=== PATIENT | male | born 1990 | race Caucasian/White ===

== ENCOUNTER 2017-10-27 05:10 | Emergency (ER) | payer SELFPAY ==
[~2017-10-27] VITALS: Ht 182.9 cm; Wt 86.2 kg
[~2017-10-27 05:10] MED LIST: ACHD5005 PO; AGM875T PO; FAMO-106 PO; HYDR-1231 PO; METH4TAB PO; METO-354 PO; ONDA-43 PO; ONDA8TAB13 PO; ONDAN4ODT PO; PANT40TA PO; PANT40TA3 PO; PNT40TEC PO; PRM25T PO; PROM25TA14 PO; SCR1T PO; SUCR1TAB PO; SULF1TAB38 PO
--- OUTSIDE RECORDS SUMMARY | 2017-10-27 05:17 | XMS REPORT | Continuity of Care Document ---
Author Author [facility] Organization [facility] Address Unknown Phone Unavailable Allergies Active Description Code Type Severity Reaction Onset Reported/Identified Relationship to Patient Clinical Status Yes No Known Drug Allergies [id number] Drug Allergy Unknown N/A 10/23/2014 Medications There is no data. 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 06/11/2012 Ot 530.81 ESOPHAGEAL REFLUX 06/11/2012 Ot 536.2 PERSISTENT VOMITING 06/11/2012 Ot 575.11 CHRONIC CHOLECYSTITIS 06/11/2012 Ot 790.6 ABN BLOOD CHEMISTRY NEC 11/22/2012 Ot 881.00 OPEN WOUND OF FOREARM 11/22/2012 Ot E000.8 OTHER EXTERNAL CAUSE STATUS 11/22/2012 Ot E849.0 ACCIDENT IN HOME 11/22/2012 Ot E906.0 DOG BITE 11/22/2012 Ot V06.1 DIPHTHERIA- TETANUS-PERTUSSIS, COMBINED [ 11/23/2012 Ot V58.30 ENCOUNTER FOR CHANGE OR REMOVAL OF NONSU 11/25/2012 Ot V58.30 ENCOUNTER FOR CHANGE OR REMOVAL OF NONSU 04/14/2013 CARLOTA BOOTHE MD Ot 787.01 NAUSEA WITH VOMITING 04/14/2013 CARLOTA BOOTHE MD Ot 789.00 ABDOMINAL PAIN, UNSPECIFIED SITE 09/26/2013 AYSHA JEFFERY, JASON Benavides Ot 305.1 TOBACCO USE DISORDER 09/26/2013 JASON OLMSTEAD MD Ot 530.10 ESOPHAGITIS NOS 09/26/2013 JASON OLMSTEAD MD Ot 530.81 ESOPHAGEAL REFLUX 09/26/2013 JASON OLMSTEAD MD Ot 535.50 UNSP GASTRITIS GASTRODUODENITIS W/O ME 12/22/2013 WALKER PHIPPS BUSINESS ASSISTANT Ot 521.00 UNSPEC DENTAL CARIES 12/22/2013 WALKER PHIPPS BUSINESS ASSISTANT Ot 525.9 DENTAL DISORDER NOS 01/02/2014 ANIBAL SHEPARD DO Ot 276.51 DEHYDRATION 01/02/2014 ANIBAL SHEPARD DO Ot 288.60 LEUKOCYTOSIS, UNSPECIFIED 01/02/2014 ANIBAL SHEPARD DO Ot 305.20 CANNABIS ABUSE-UNSPEC 01/02/2014 ANIBAL SHEPARD DO Ot 530.81 ESOPHAGEAL REFLUX 01/02/2014 ANIBAL SHEPARD DO Ot 536.2 PERSISTENT VOMITING 03/23/2014 ANIBAL SHEPARD DO Ot 536.2 PERSISTENT VOMITING 03/23/2014 ANIBAL SHEPARD DO Ot 787.91 DIARRHEA 10/22/2014 Ot 787.01 NAUSEA WITH VOMITING 10/22/2014 Ot 787.03 VOMITING ALONE 10/26/2014 Ot 305.20 CANNABIS ABUSE-UNSPEC 10/26/2014 Ot 305.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, HYPNOTIC OR ANXIOLYTIC ABUSE, 10/26/2014 Ot 305.70 AMPHETAMINE ABUSE-UNSPEC 10/26/2014 Ot 536.2 PERSISTENT VOMITING 03/31/2016 Ot 786.52 PAINFUL RESPIRATION 04/01/2016 Ot 786.52 PAINFUL RESPIRATION 04/02/2016 WALKER PHIP[employer] BUSINESS ASSISTANT Ot F10.10 ALCOHOL ABUSE, UNCOMPLICATED 04/02/2016 WALKER [employer] BUSINESS ASSISTANT Ot F12.10 CANNABIS ABUSE, UNCOMPLICATED 04/02/2016 WALKER [employer]IP[employer] BUSINESS ASSISTANT Ot G43.A0 CYCLICAL VOMITING, NOT INTRACTABLE 04/02/2016 TYREE STONER MD Ot F10.10 ALCOHOL ABUSE, UNCOMPLICATED 04/02/2016 TYREE STONER MD Ot F12.10 CANNABIS ABUSE, UNCOMPLICATED 04/02/2016 TYREE STONER MD Ot R11.2 NAUSEA WITH VOMITING, UNSPECIFIED Procedures There is no data. Results Test Result Range Complete blood count (CBC) with automated white blood cell (WBC) differential - 03/31/16 13:00 Blood leukocytes automated count (number/volume) 14.0 10*3/uL 4.3-11.0 Blood erythrocytes automated count (number/volume) 5.63 10*6/uL 4.35-5.85 Venous blood hemoglobin measurement (mass/volume) 17.4 g/dL 13.3-17.7 Blood hematocrit (volume fraction) 49 % 40-54 Automated erythrocyte mean corpuscular volume 86 [foz_us] 80-99 Automated erythrocyte mean corpuscular hemoglobin (mass per erythrocyte) 31 pg 25-34 Automated erythrocyte mean corpuscular hemoglobin concentration measurement ( mass/volume) 36 g/dL 32-36 Automated erythrocyte distribution width ratio 12.0 % 10.0-14.5 Automated blood platelet count (count/volume) 264 10*3/uL 130-400 Automated blood platelet mean volume measurement 10.4 [foz_us] 7.4-10.4 Automated blood neutrophils/100 leukocytes 91 % 42-75 Automated blood lymphocytes/100 leukocytes 5 % 12-44 Blood monocytes/100 leukocytes 3 % 0-12 Automated blood eosinophils/100 leukocytes 0 % 0-10 Automated blood basophils/100 leukocytes 0 % 0-10 Blood neutrophils automated count (number/volume) 12.8 10*3 1.8-7.8 Blood lymphocytes automated count (number/volume) 0.8 10*3 1.0-4.0 Blood monocytes automated count (number/volume) 0.5 10*3 0.0-1.0 Automated eosinophil count 0.0 10*3/uL 0.0-0.3 Automated blood basophil count (count/volume) 0.0 10*3/uL 0.0-0.1 Blood manual differential performed detection - 03/31/16 13:00 Blood monocytes/100 leukocytes 2 % NRG Manual blood segmented neutrophils/100 leukocytes 92 % NRG Blood band neutrophils/100 leukocytes 2 % NRG Manual blood lymphocytes/100 leukocytes 2 % NRG Manual eosinophils/100 leukocytes in nose 0 % NRG Manual blood basophils/100 leukocytes 0 % NRG Blood lymphocytes variant/100 leukocytes 2 % NRG Blood erythrocyte morphology finding identification NORMAL NRG Complete blood count (CBC) with automated white blood cell (WBC) differential - 04/01/16 18:05 Blood leukocytes automated count (number/volume) 11.0 10*3/uL 4.3-11.0 Blood erythrocytes automated count (number/volume) 5.29 10*6/uL 4.35-5.85 Venous blood hemoglobin measurement (mass/volume) 16.5 g/dL 13.3-17.7 Blood hematocrit (volume fraction) 46 % 40-54 Automated erythrocyte mean corpuscular volume 87 [foz_us] 80-99 Automated erythrocyte mean corpuscular hemoglobin (mass per erythrocyte) 31 pg 25-34 Automated erythrocyte mean corpuscular hemoglobin concentration measurement ( mass/volume) 36 g/dL 32-36 Automated erythrocyte distribution width ratio 11.9 % 10.0-14.5 Automated blood platelet count (count/volume) 235 10*3/uL 130-400 Automated blood platelet mean volume measurement 10.3 [foz_us] 7.4-10.4 Automated blood neutrophils/100 leukocytes 83 % 42-75 Automated blood lymphocytes/100 leukocytes 10 % 12-44 Blood monocytes/100 leukocytes 6 % 0-12 Automated blood eosinophils/100 leukocytes 0 % 0-10 Automated blood basophils/100 leukocytes 0 % 0-10 Blood neutrophils automated count (number/volume) 9.2 10*3 1.8-7.8 Blood lymphocytes automated count (number/volume) 1.1 10*3 1.0-4.0 Blood monocytes automated count (number/volume) 0.7 10*3 0.0-1.0 Automated eosinophil count 0.0 10*3/uL 0.0-0.3 Automated blood basophil count (count/volume) 0.0 10*3/uL 0.0-0.1 Comprehensive metabolic panel - 04/01/16 18:05 Serum or plasma sodium measurement (moles/volume) 140 mmol/L 135-145 Serum or plasma potassium measurement (moles/volume) 3.7 mmol/L 3.6-5.0 Serum or plasma chloride measurement (moles/volume) 104 mmol/L 98-107 Carbon dioxide 23 mmol/L 21-32 Serum or plasma anion gap determination (moles/volume) 13 mmol/L 5-14 Serum or plasma urea nitrogen measurement (mass/volume) 15 mg/dL 7-18 Serum or plasma creatinine measurement (mass/volume) 0.85 mg/dL 0.60-1.30 Serum or plasma urea nitrogen/creatinine mass ratio 18 NRG Serum or plasma creatinine measurement with calculation of estimated glomerular filtration rate > NRG Serum or plasma glucose measurement (mass/volume) 129 mg/dL 70-105 Serum or plasma calcium measurement (mass/volume) 9.9 mg/dL 8.5-10.1 Serum or plasma total bilirubin measurement (mass/volume) 1.1 mg/dL 0.1-1.0 Serum or plasma alkaline phosphatase measurement (enzymatic activity/volume) 67 U/L 40-136 Serum or plasma aspartate aminotransferase measurement (enzymatic activity/ volume) 24 U/L 5-34 Serum or plasma alanine aminotransferase measurement (enzymatic activity/volume ) 33 U/L 0-55 Serum or plasma protein measurement (mass/volume) 7.7 g/dL 6.4-8.2 Serum or plasma albumin measurement (mass/volume) 4.7 g/dL 3.2-4.5 Magnesium - 04/01/16 18:05 Magnesium 2.0 mg/dL 1.8-2.4 Serum or plasma amylase measurement (enzymatic activity/volume) - 04/01/16 18: 05 Serum or plasma amylase measurement (enzymatic activity/volume) 29 U /L 25-125 Lipase - 04/01/16 18:05 Lipase 10 U/L 8-78 Encounters ACCT No. Visit Date/Time Discharge Status Pt. Type Provider Facility Loc./Unit Complaint [id number] 04/01/2016 15:55:00 04/01/2016 19:50:00 DIS Outpatient TYREE STONER MD [facility] ER VOMITING [id number] 03/31/2016 12:31:00 03/31/2016 15:27:00 DIS Outpatient WALKER PHIPPS APRN [facility] ER VOMITING [id number] 03/22/2014 21:18:00 03/23/2014 15:02:00 DIS Inpatient ANIBAL SHEPARD DO [facility] 4TH INTRACTABLE N/V [id number] 12/31/2013 23:49:00 01/02/2014 13:30:00 DIS Inpatient ANIBAL SHEPARD DO [facility] 4TH INTRACTABLE VOMITING , DEHYDRATION [id number] 12/22/2013 22:33:00 12/22/2013 22:43:00 DIS Emergency WALKER PHIPPS APRN [facility] ER DENTAL PAIN [id number] 09/24/2013 22:55:00 09/26/2013 11:33:00 DIS Outpatient AYSHA JEFFERY, JASON Benavides [facility] SDC INTRACTABLE VOMITING ; LEUKOCYTOSIS [id number] 04/14/2013 11:11:00 04/14/2013 14:18:00 DIS Emergency CARLOTA BOOTHE MD [facility] ER ABD PAIN/VOMITING HEADACHE [id number] 02/01/2015 15:58:00 Document Registration [id number] 10/23/2014 09:11:00 Document Registration [id number] 10/22/2014 20:36:00 Document Registration [id number] 10/22/2014 10:02:00 Document Registration [id number] 11/23/2012 12:46:00 Document Registration [id number] 11/22/2012 19:09:00 Document Registration [id number] 06/10/2012 00:35:00 Document Registration [id number] 06/07/2012 02:11:00 Document Registration [id number] 06/06/2012 11:12:00 Document Registration [id number] 12/23/2010 16:00:00 Document Registration
[2017-10-27] MEDS ORDERED: LACTATED RINGERS 1,000 ML IV STA (05:52)
[2017-10-27] MEDS ORDERED: FAMOTIDINE 20MG/2ML IV (PEPCID) IV STA (05:52)
--- NOTE | 2017-10-27 05:59 | ED GI ---
General Chief Complaint: Abdominal/GI Problems Stated Complaint: VOMITING X 2 DAYS Nursing Triage Note: pt presents to er with complaint of vomiting x2 days. Sepsis Screen: No Definite Risk Source of Information: Patient Exam Limitations: No Limitations (TYREE STONER MD) History of Present Illness Date Seen by Provider: Oct 27, 2017 Time Seen by Provider: 05:47 Initial Comments Here with report of persistent nausea and vomiting for the last 2 days. States he has not been able to keep anything down. Reports abdominal muscle wall pain due to the vomiting. Has history of this previous but was associated with high use of marijuana. States that he occasionally or rarely uses marijuana anymore. Rarely drinks but did drink on Thursday and thinks that may be what initiated the vomiting. Unable to keep fluids down. Concerned about being dehydrated. Timing/Duration: 2-3 Days Severity/Quality: Moderate, Aching Location: Generalized Abdomen Radiation: No Radiation Activities at Onset: None Modifying Factors: Worsens With Eating, Worsens With Movement Associated Symptoms: No Back Pain, No Chest Pain, No Fever/Chills, Fatigue, Nausea/Vomiting, No Shortness of Air, Weakness (TYREE STONER MD) Allergies and Home Medications Allergies Coded Allergies: No Known Drug Allergies (Unverified , 10/23/14) Home Medications Ondansetron 4 Mg Tab.rapdis, 4 MG SL Q4H PRN for NAUSEA/VOMITING-1ST LINE Prescribed by: KATHIE HEDRICK on 10/27/17 0649 Patient Home Medication List Home Medication List Reviewed: Yes (TYREE STONER MD) Review of Systems Constitutional: see HPI, No chills, No fever EENTM: No Symptoms Reported Respiratory: No Symptoms Reported Cardiovascular: Denies Chest Pain, Lightheadedness Gastrointestinal: Abdominal Pain, Denies Constipated, Denies Diarrhea, Nausea, Vomiting Genitourinary: No Symptoms Reported Musculoskeletal: No back pain, muscle pain, No neck pain (TYREE STONER MD ) All Other Systems Reviewed Negative Unless Noted: Yes (TYREE STONER MD) Past Auftttb-Yahqoq-Jofure Hx Patient Social History Alcohol Use: Occasionally Uses Recreational Drug Use: Yes (occasional marijuana) Smoking Status: Former Smoker Recent Foreign Travel: No Contact w/Someone Who Travel: No Recent Infectious Disease Expo: No Recent Hopitalizations: No (TYREE STONER MD) Immunizations Up To Date Tetanus Booster (TDap): More than 5yrs (TYREE STONER MD) Seasonal Allergies Seasonal Allergies: No (TYREE STONER MD) Surgeries History of Surgeries: Yes (EGD) (TYREE STONER MD) Respiratory History of Respiratory Disorde: No (TYREE STONER MD) Cardiovascular History of Cardiac Disorders: No (TYREE STONER MD) Neurological History of Neurological Disord: No (TYREE STONER MD) Reproductive System Hx Reproductive Disorders: No Sexually Transmitted Disease: No HIV/AIDS: No (TYREE STONER MD) Gastrointestinal History of Gastrointestinal Di: Yes (unexplain bouts of vomitting) Gastrointestinal Disorders: Gastroesophageal Reflux (TYREE STONER MD) Musculoskeletal History of Musculoskeletal Dis: No (TYREE STONER MD) Endocrine History of Endocrine Disorders: No (TYREE STONER MD) Cancer History of Cancer: No (TYREE STONER MD) Psychosocial History of Psychiatric Problem: No (TYREE STONER MD) Integumentary History of Skin or Integumenta: No (TYREE STONER MD) Blood Transfusions History of Blood Disorders: No (TYREE STONER MD) Reviewed Nursing Assessment Reviewed/Agree w Nursing PMH: Yes (TYREE STONER MD) Family Medical History Significant Family History: No Pertinent Family Hx Family Medial History: Cancer 03 FATHER (grandfather) 03 MOTHER (grandaunts) Family history: Breast disease 03 MOTHER Family history: Hypertension 03 FATHER No Family History of: Abdominal aortic aneurysm Parma's disease Alcoholism Cancer of colon Cataract Chest pain Congenital heart disease Congestive heart failure Cystic fibrosis Dementia Dysphagia Family history: Alzheimer's disease Family history: Arthritis Family history: Asthma Family history: Cardiovascular disease Family history: Coronary thrombosis Family history: Diabetes mellitus Family history: Gastrointestinal disease Family history: Glaucoma Family history: Osteoporosis Family history: Thyroid disorder Headache Hearing loss Heart disease History of - anemia History of - respiratory disease History of drug abuse Human immunodeficiency virus (HIV) seropositivity Hypercholesterolemia Kidney disease Myocardial infarction Parkinson's disease Prostate cancer Psychotic disorder Seizure disorder Stroke Tuberculosis Visual impairment (TYREE STONER MD) Family Medial History: Cancer 03 FATHER (grandfather) 03 MOTHER (grandaunts) Family history: Breast disease 03 MOTHER Family history: Hypertension 03 FATHER No Family History of: Abdominal aortic aneurysm Parma's disease Alcoholism Cancer of colon Cataract Chest pain Congenital heart disease Congestive heart failure Cystic fibrosis Dementia Dysphagia Family history: Alzheimer's disease Family history: Arthritis Family history: Asthma Family history: Cardiovascular disease Family history: Coronary thrombosis Family history: Diabetes mellitus Family history: Gastrointestinal disease Family history: Glaucoma Family history: Osteoporosis Family history: Thyroid disorder Headache Hearing loss Heart disease History of - anemia History of - respiratory disease History of drug abuse Human immunodeficiency virus (HIV) seropositivity Hypercholesterolemia Kidney disease Myocardial infarction Parkinson's disease Prostate cancer Psychotic disorder Seizure disorder Stroke Tuberculosis Visual impairment (KATHIE DICKERSON MD) Physical Exam Vital Signs VS - Last 72 Hours, by Label 10/27/17 10/27/17 05:22 07:40 Temp 98.0 Pulse 95 80 Resp 20 18 B/P (MAP) 154/115 (128) 173/103 Pulse Ox 98 96 O2 Delivery Room Air (KATHIE DICKERSON MD) Vital Signs Capillary Refill : Less Than 3 Seconds (TYREE STONER MD) General Appearance: WD/WN, no apparent distress HEENT: PERRL/EOMI, pharyngeal erythema Neck: full range of motion, supple Respiratory: lungs clear, normal breath sounds Cardiovascular: no murmur, tachycardia Peripheral Pulses: 2+ Dorsalis Pedis (R), 2+ Left Dors-Pedis (L), 2+ Radial Pulses (R), 2+ Radial Pulses (L) Gastrointestinal: soft, tenderness (diffuse tenderness along the muscular wall of the abdomen bilaterally) Extremities: non-tender, normal inspection Back: normal inspection, no CVA tenderness, no vertebral tenderness Neurologic/Psychiatric: alert, oriented x 3 Skin: normal color, warm/dry (TYREE STONER MD) Laceration Repair : Suture Size: 4-0 (TYREE STONER MD) Progress/Results/Core Measures Results/Orders Lab Results Laboratory Tests Test 10/27/17 05:57 10/27/17 06:29 Range/Units White Blood Count 14.1 H 4.3-11.0 10^3/uL Red Blood Count 5.79 4.35-5.85 10^6/uL Hemoglobin 17.6 13.3-17.7 G/DL Hematocrit 48 40-54 % Mean Corpuscular Volume 83 80-99 FL Mean Corpuscular Hemoglobin 30 25-34 PG Mean Corpuscular Hemoglobin Concent 37 H 32-36 G/DL Red Cell Distribution Width 11.9 10.0-14.5 % Platelet Count 270 130-400 10^3/uL Mean Platelet Volume 10.2 7.4-10.4 FL Neutrophils (%) (Auto) 80 H 42-75 % Lymphocytes (%) (Auto) 11 L 12-44 % Monocytes (%) (Auto) 9 0-12 % Eosinophils (%) (Auto) 0 0-10 % Basophils (%) (Auto) 0 0-10 % Neutrophils # (Auto) 11.4 H 1.8-7.8 X 10^3 Lymphocytes # (Auto) 1.5 1.0-4.0 X 10^3 Monocytes # (Auto) 1.3 H 0.0-1.0 X 10^3 Eosinophils # (Auto) 0.0 0.0-0.3 10^3/uL Basophils # (Auto) 0.0 0.0-0.1 10^3/uL Sodium Level 135 135-145 MMOL/L Potassium Level 3.2 L 3.6-5.0 MMOL/L Chloride Level 86 L 98-107 MMOL/L Carbon Dioxide Level 31 21-32 MMOL/L Anion Gap 18 H 5-14 MMOL/L Blood Urea Nitrogen 34 H 7-18 MG/DL Creatinine 1.27 0.60-1.30 MG/DL Estimat Glomerular Filtration Rate > 60 BUN/Creatinine Ratio 27 Glucose Level 143 H 70-105 MG/DL Calcium Level 10.5 H 8.5-10.1 MG/DL Total Bilirubin 1.6 H 0.1-1.0 MG/DL Aspartate Amino Transf (AST/SGOT) 34 5-34 U/L Alanine Aminotransferase (ALT/SGPT) 40 0-55 U/L Alkaline Phosphatase 68 40-136 U/L Total Protein 8.9 H 6.4-8.2 GM/DL Albumin 5.2 H 3.2-4.5 GM/DL Amylase Level 33 25-125 U/L Lipase 16 8-78 U/L Urine Color ROCIO H Urine Clarity CLEAR Urine pH 7 5-9 Urine Specific [place] 1.010 L 1.016-1.022 Urine Protein 2+ H NEGATIVE Urine Glucose (UA) NEGATIVE NEGATIVE Urine Ketones 4+ H NEGATIVE Urine Nitrite NEGATIVE NEGATIVE Urine Bilirubin NEGATIVE NEGATIVE Urine Urobilinogen NORMAL NORMAL MG/DL Urine Leukocyte Esterase 1+ H NEGATIVE Urine RBC (Auto) 2+ H NEGATIVE Urine RBC 2-5 H /HPF Urine WBC RARE /HPF Urine Squamous Epithelial Cells 2-5 /HPF Urine Crystals NONE /LPF Urine Bacteria TRACE /HPF Urine Casts PRESENT /LPF Urine Hyaline Casts 5-10 H /LPF Urine Mucus LARGE H /LPF Urine Culture Indicated NO (KATHIE DICKERSON MD) My Orders Orders - KATHIE DICKERSON MD Saline Lock/Iv-Start (10/27/17 06:30) Lactated Ringers (Lr 1000 Ml Iv Solution (10/27/17 06:30) (KATHIE DICKERSON MD) Medications Given in ED Current Medications Medications Dose Ordered Sig/Ochoa Route Start Time Stop Time Status Last Admin Dose Admin Al Hydrox/Mg Hydrox/Simethicone 30 ml ONCE ONCE PO 10/27/17 06:15 10/27/17 06:16 DC 10/27/17 06:14 30 ML Lactated Ringer's 1,000 ml @ 0 mls/hr Q0M ONCE IV 10/27/17 06:30 10/27/17 06:32 DC 10/27/17 06:53 1,000 MLS/HR Lidocaine HCl 15 ml ONCE ONCE PO 10/27/17 06:15 10/27/17 06:16 DC 10/27/17 06:13 15 ML Ondansetron HCl 8 mg ONCE ONCE IVP 10/27/17 06:00 10/27/17 06:01 DC 10/27/17 06:04 8 MG (KATHIE DICKERSON MD) Vital Signs/I&O Vital Sign - Last 12Hours 10/27/17 10/27/17 05:22 07:40 Temp 98.0 Pulse 95 80 Resp 20 18 B/P (MAP) 154/115 (128) 173/103 Pulse Ox 98 96 O2 Delivery Room Air (KATHIE DICKERSON MD) Blood Pressure Mean: 128 Progress Note : Progress Note Seen and evaluated. IV, labs, UA, normal saline 1 L bolus, Zofran 8 mg IV and Pepcid 20 mg IV ordered. Monitor patient. (TYREE STONER MD) Progress Note #1: Time: 06:34 Progress Note Care of this patient was assumed from Dr. Stoner at shift change. He is feeling better and was able to tolerate a GI cocktail. The GI cocktail did improve the burning in his abdomen. Patient admits to drinking 2 beers and a glass of wine on Thursday which may have triggered his vomiting. He also admits to smoking marijuana a week ago. He admits that he is having difficulty stopping alcohol and marijuana use. He will accept referrals to substance abuse treatment programs. A second liter of lactated Ringer's has been ordered. Patient was able to produce some very dark urine. He was noted to have mild renal insufficiency and hypokalemia on his labs. Progress Note #2: Time: 07:43 Progress Note Patient was noted to be hypertensive at dismissal. He was not experiencing secondary symptoms of hypertension. He was advised to stop by the clinic tomorrow to his blood pressure checked. He denies ever having any problems with hypertension in the past. (KATHIE DICKERSON MD) Departure Impression Impression: Primary Impression: Nausea and vomiting Qualified Codes: R11.2 - Nausea with vomiting, unspecified Additional Impressions: Generalized abdominal pain Renal insufficiency Hypokalemia Disposition: 01 HOME, SELF-CARE Condition: Improved Departure-Patient Inst. Decision time for Depature: 06:44 (KATHIE DICKERSON MD) Referrals: ANIBAL SHEPARD DO (PCP/Family) Primary Care Physician Patient Instructions: Nausea and Vomiting, Adult Add. Discharge Instructions: Start with a clear liquid diet and drink plenty of clear liquids. Gradually advance your diet with small quantities of bland food as tolerated. Eat some food with high levels of potassium such as banana, yogurt, citrus fruits and juices, etc. to replenish your low potassium. Use Zofran (ondansetron) as prescribed for nausea and vomiting. Avoid triggers of nausea and vomiting including marijuana and alcohol. You may use Tylenol (acetaminophen) and/or ibuprofen in moderation for pain. Return to care if symptoms worsen. Follow up with your primary care provider within one week. Contact the addiction treatment services at [facility] for assistance with cessation of alcohol and marijuana. All discharge instructions reviewed with patient and/or family. Voiced understanding. Scripts Ondansetron (Zofran Odt) 4 Mg Tab.rapdis 4 MG SL Q4H Y for NAUSEA/VOMITING-1ST LINE, #10 TAB Prov: KATHIE DICKERSON MD 10/27/17 Copy Copies To 1: ANIBAL SHEPARD TIMOTHY D MD Oct 27, 2017 05:59 KATHIE DICKERSON MD Oct 27, 2017 06:44
[2017-10-27] MEDS ORDERED: ONDANSETRON 4 MG/2 ML (SDV) Z0FRAN IVP ONE ×2 (06:00)
[2017-10-27 06:04] LABS: BASOPHILS % (AUTO) 0 % (0-10); EOSINOPHILS % (AUTO) 0 % (0-10); HEMATOCRIT 48 % (40-54); HEMOGLOBIN 17.6 G/DL (13.3-17.7); LYMPHOCYTES # (AUTO) 1.5 X 10^3 (1.0-4.0); LYMPHOCYTES % (AUTO) 11 % (12-44); MEAN CORPUSCULAR HEMOGLOBIN 30 PG (25-34); MEAN CORPUSCULAR HGB CONC 37 G/DL (32-36); MEAN CORPUSCULAR VOLUME 83 FL (80-99); MEAN PLATELET VOLUME 10.2 FL (7.4-10.4); MONOCYTES # (AUTO) 1.3 X 10^3 (0.0-1.0); MONOCYTES % (AUTO) 9 % (0-12); NEUTROPHILS # (AUTO) 11.4 X 10^3 (1.8-7.8); NEUTROPHILS % (AUTO) 80 % (42-75); PLATELET COUNT 270 10^3/uL (130-400); RED BLOOD COUNT 5.79 10^6/uL (4.35-5.85); RED CELL DISTRIBUTION WIDTH 11.9 % (10.0-14.5); WHITE BLOOD COUNT 14.1 10^3/uL (4.3-11.0)
[2017-10-27] MEDS ORDERED: ANTACID SUSP 30 ML UDC (MYLANTA) PO ONE (06:15)
[2017-10-27] MEDS ORDERED: LIDOCAINE 2% VISCOUS 15 ML UDC PO ONE (06:15)
[2017-10-27 06:20] LABS: ALANINE AMINOTRANSFERASE 40 U/L (0-55); ALBUMIN 5.2 GM/DL (3.2-4.5); ALKALINE PHOSPHATASE 68 U/L (40-136); AMYLASE 33 U/L (25-125); BILIRUBIN,TOTAL 1.6 MG/DL (0.1-1.0); BUN/CREATININE RATIO 27; CALCIUM 10.5 MG/DL (8.5-10.1); CARBON DIOXIDE 31 MMOL/L (21-32); CHLORIDE 86 MMOL/L (98-107); CREATININE SERUM 1.27 MG/DL (0.60-1.30); GFR ESTIMATED > 60; GLUCOSE 143 MG/DL (70-105); LIPASE 16 U/L (8-78); POTASSIUM 3.2 MMOL/L (3.6-5.0); SODIUM 135 MMOL/L (135-145); TOTAL PROTEIN 8.9 GM/DL (6.4-8.2)
[2017-10-27] MEDS ORDERED: LACTATED RINGERS 1,000 ML IV ONE (06:30)
[2017-10-27 06:34] LABS: BILIRUBIN,URINE NEGATIVE (NEGATIVE); CLARITY,URINE CLEAR; COLOR,URINE AMBER; GLUCOSE, URINE (UA) NEGATIVE (NEGATIVE); KETONES,URINE 4+ (NEGATIVE); LEUKOCYTE ESTERASE ,URINE 1+ (NEGATIVE); NITRITE,URINE NEGATIVE (NEGATIVE); PH,URINE 7 (5-9); PROTEIN,URINE 2+ (NEGATIVE); UROBILINOGEN,URINE NORMAL (NORMAL)
[2017-10-27 06:42] LABS: BACTERIA,URINE TRACE /HPF; WBC,URINE RARE /HPF
[2017-10-27] MEDS ORDERED: ONDA4TAB8 SL (06:49)
[2017-10-27 07:40] VITALS: BP 173/103
== END 2017-10-27 07:40 | disposition home or self-care (01) ==
LOC: EDUNIT# 05:10 → ER 05:13
DX: N28.9 Disorder of kidney and ureter, unspecified (principal); E87.6 Hypokalemia; R11.2 Nausea with vomiting, unspecified; K21.9 Gastro-esophageal reflux disease without esophagitis; F12.10 Cannabis abuse, uncomplicated; Z87.891 Personal history of nicotine dependence
CPT/HCPCS: 36415; 80053; 81000; 82150; 83690; 85025; 96361; 96374; 96375

== ENCOUNTER 2018-05-01 00:40 | Emergency (ER) | payer SELFPAY ==
[~2018-05-01] VITALS: Ht 188 cm; Wt 90.7 kg
[~2018-05-01 00:40] MED LIST changes: +ONDA4TAB8 SL
[2018-05-01 00:56] LABS: HEMOGLOBIN 15.8 G/DL (13.3-17.7); MEAN PLATELET VOLUME 10.3 FL (7.4-10.4); RED BLOOD COUNT 5.18 10^6/uL (4.35-5.85); RED CELL DISTRIBUTION WIDTH 12.4 % (10.0-14.5); WHITE BLOOD COUNT 9.5 10^3/uL (4.3-11.0)
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
--- OUTSIDE RECORDS SUMMARY | 2018-05-01 00:58 | XMS REPORT ---
Author Author ELIA VAZQUEZ Organization [facility] Address [address] [place] [address] Care Team Providers Care Pipe Tester Name Role Phone ELIA VAZQUEZ Unavailable PROBLEMS Type Condition ICD9-CM Code [id number] Code Onset Dates Condition Status SNOMED Code Problem Gastroesophageal reflux disease without esophagitis K21.9 Active 090037257 ALLERGIES No Known Allergies ENCOUNTERS Encounter Location Date Diagnosis [facility] [address] [facility] [id number] [place] [address] Oct, Intractable vomiting with nausea, unspecified vomiting type R11.2 and Gastroesophageal reflux disease without esophagitis K21.9 IMMUNIZATIONS Vaccine Route Administration Date Status PHENERGAN 50MG/ML IM Intramuscular October 28, 2017 Administered SOCIAL HISTORY Never Assessed REASON FOR VISIT Vomiting started Sun afternoon- ER yesterday got 2 bags of fluids and some zofran JStrasserRN PLAN OF CARE Activity Details Follow Up prn Reason: VITAL SIGNS Weight 185.8 lbs 2017-10-28 Temperature 99.1 degrees Fahrenheit 2017-10-28 Heart Rate 88 bpm 2017-10-28 Respiratory Rate 18 2017-10-28 Blood pressure systolic 150 mmHg 2017-10-28 Blood pressure diastolic 110 mmHg 2017-10-28 MEDICATIONS Medication Instructions Dosage Frequency Start Date End Date Duration Status Zofran ODT 4 MG Active Promethazine HCl 25 MG Orally every 6 hrs 1 tablet as needed 6h Oct, Active Zantac 150 MG Orally Once a day 1 tablet at bedtime 24h Oct, 30 day(s) Active RESULTS No Results PROCEDURES Procedure Date Ordered Result Body Site PHENERGAN 50MG/ML October 28, 2017 THER/PROPH/DIAG INJ, SC/IM October 28, 2017 INSTRUCTIONS MEDICATIONS ADMINISTERED No Known Medications MEDICAL (GENERAL) HISTORY Type Description Date Hospitalization History Vomiting related to alcohol 2016
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
[2018-05-01 01:10] LABS: ALANINE AMINOTRANSFERASE 31 U/L (0-55); ALBUMIN 4.3 GM/DL (3.2-4.5); ALKALINE PHOSPHATASE 63 U/L (40-136); BILIRUBIN,DIRECT 0.2 MG/DL (0.0-0.3); BILIRUBIN,INDIRECT 0.4 MG/DL; BILIRUBIN,TOTAL 0.6 MG/DL (0.1-1.0); BUN/CREATININE RATIO 12; CALCIUM 8.5 MG/DL (8.5-10.1); CARBON DIOXIDE 20 MMOL/L (21-32); CHLORIDE 107 MMOL/L (98-107); CREATININE SERUM 0.85 MG/DL (0.60-1.30); GFR ESTIMATED > 60; GLUCOSE 116 MG/DL (70-105); POTASSIUM 3.5 MMOL/L (3.6-5.0); SODIUM 142 MMOL/L (135-145); TOTAL PROTEIN 6.9 GM/DL (6.4-8.2)
[2018-05-01] MEDS ORDERED: THIAMINE INJECTION 100 MG, FOLIC ACID INJECTION 1 MG, VITAMIN MULTI INJECTION 10 ML, MA... IV STA ×5 (01:43)
[2018-05-01] MEDS ORDERED: NS IV 1000 ML 1,000 ML ONE (01:47)
[2018-05-01] MEDS ORDERED: MAGNESIUM SULFATE 1 GM/2 ML VIAL ONE (01:47)
[2018-05-01] MEDS ORDERED: FOLIC ACID 1 MG/0.2 ML SYR (ED) ONE (01:47)
[2018-05-01] MEDS ORDERED: THIAMINE 100 MG/ML 2 ML (VITAMIN B-1) VIAL ONE (01:48)
[2018-05-01 02:08] LABS: BILIRUBIN,URINE NEGATIVE (NEGATIVE); CLARITY,URINE CLEAR; COLOR,URINE YELLOW; GLUCOSE, URINE (UA) NEGATIVE (NEGATIVE); KETONES,URINE NEGATIVE (NEGATIVE); LEUKOCYTE ESTERASE ,URINE NEGATIVE (NEGATIVE); NITRITE,URINE NEGATIVE (NEGATIVE); PH,URINE 7 (5-9); PROTEIN,URINE NEGATIVE (NEGATIVE); UROBILINOGEN,URINE NORMAL (NORMAL)
[2018-05-01] MEDS ORDERED: IOHEXOL 350 MG/ML 100 ML (OMNIPAQUE 350) VIAL IV ONE (02:15)
[2018-05-01] MEDS ORDERED: NS 250 ML (IVPB) BAG IV ONE (02:15)
[2018-05-01 02:20] LABS: BACTERIA,URINE NEGATIVE /HPF; WBC,URINE RARE /HPF
[2018-05-01] MEDS ORDERED: LIDOCAINE 1% INJ 20 ML 20 ML VIAL INJ ONE (02:30)
[2018-05-01 02:41] LABS: AMPHETAMINE SCREEN, URINE NEGATIVE (NEGATIVE); BARBITURATE SCREEN URINE NEGATIVE (NEGATIVE); BENZODIAZEPINES SCREEN URINE NEGATIVE (NEGATIVE); CANNABINOID SCREEN, URINE POSITIVE (NEGATIVE); COCAINE SCREEN URINE NEGATIVE (NEGATIVE); METHADONE STAT NEGATIVE (NEGATIVE); METHAMPHETAMINE SCREEN URINE S NEGATIVE (NEGATIVE); OPIATE SCREEN URINE NEGATIVE (NEGATIVE); OXYCODONE STAT NEGATIVE (NEGATIVE); PROPOXYPHENE STAT NEGATIVE (NEGATIVE); TRICYCLIC ANTIDEPRESSANTS SCRE NEGATIVE (NEGATIVE)
[2018-05-01] MEDS ORDERED: ONDANSETRON 4 MG/2 ML (SDV) Z0FRAN ONE ×2 (02:41→08:06)
[2018-05-01] MEDS ORDERED: ONDANSETRON 4 MG/2 ML (SDV) Z0FRAN IVP ONE ×2 (02:45→08:30)
[2018-05-01] MEDS ORDERED: TETANUS,DIPTH,PERTUSS P/F (BOOSTRIX) 0.5 ML VIAL IM ONE (03:15)
[2018-05-01] MEDS ORDERED: LACTATED RINGERS 1,000 ML IV ONE (03:20)
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
[2018-05-01 08:52] VITALS: BP 138/81
== END 2018-05-01 08:55 | disposition short-term general hospital (02) ==
LOC: EDUNIT# 00:40 → ER 00:42
DX: S06.9X0A Unspecified intracranial injury without loss of consciousness, initial encounter (principal); S71.112A Laceration without foreign body, left thigh, initial encounter; K21.9 Gastro-esophageal reflux disease without esophagitis; R40.2142 Coma scale, eyes open, spontaneous, at arrival to emergency department; R40.2242 Coma scale, best verbal response, confused conversation, at arrival to emergency department; R40.2362 Coma scale, best motor response, obeys commands, at arrival to emergency department; F10.10 Alcohol abuse, uncomplicated; V28.4XXA Motorcycle driver injured in noncollision transport accident in traffic accident, initial encounter; Y92.488 Other paved roadways as the place of occurrence of the external cause
CPT/HCPCS: 12001; 36415; 70450; 71045; 71260; 72125; 72170; 73562; 74177; 80048; 80076; 80306; 80320; 81000; 85027; 90471; 90715; 93005; 93041; 96361; 96374; 96375; 96376

== ENCOUNTER 2018-05-07 22:02 | Emergency (ER) | payer SELFPAY ==
[~2018-05-07] VITALS: Ht 182.9 cm; Wt 81.6 kg
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
[2018-05-07] MEDS ORDERED: NS IV 1000 ML 1,000 ML IV ONE (23:53)
[2018-05-07 23:59] LABS: BILIRUBIN,URINE NEGATIVE (NEGATIVE); CLARITY,URINE SLIGHTLY CLOUDY; COLOR,URINE BROWN; GLUCOSE, URINE (UA) NEGATIVE (NEGATIVE); KETONES,URINE 4+ (NEGATIVE); LEUKOCYTE ESTERASE ,URINE 1+ (NEGATIVE); NITRITE,URINE NEGATIVE (NEGATIVE); PH,URINE 9 (5-9); PROTEIN,URINE 3+ (NEGATIVE); UROBILINOGEN,URINE 1 MG/DL (NORMAL)
[2018-05-08] MEDS ORDERED: ONDANSETRON 4 MG/2 ML (SDV) Z0FRAN IVP ONE
[2018-05-08 00:07] LABS: BACTERIA,URINE NEGATIVE /HPF; SQUAMOUS EPITHELIAL CELL,UR 0-2 /HPF
[2018-05-08 00:17] LABS: BASOPHILS % (AUTO) 0 % (0-10); EOSINOPHILS % (AUTO) 0 % (0-10); HEMATOCRIT 43 % (40-54); LYMPHOCYTES # (AUTO) 0.7 X 10^3 (1.0-4.0); LYMPHOCYTES % (AUTO) 6 % (12-44); MEAN CORPUSCULAR HEMOGLOBIN 31 PG (25-34); MEAN CORPUSCULAR HGB CONC 37 G/DL (32-36); MEAN CORPUSCULAR VOLUME 84 FL (80-99); MEAN PLATELET VOLUME 9.9 FL (7.4-10.4); MONOCYTES # (AUTO) 0.4 X 10^3 (0.0-1.0); MONOCYTES % (AUTO) 3 % (0-12); NEUTROPHILS # (AUTO) 11.3 X 10^3 (1.8-7.8); NEUTROPHILS % (AUTO) 91 % (42-75); PLATELET COUNT 286 10^3/uL (130-400); RED CELL DISTRIBUTION WIDTH 12.2 % (10.0-14.5); WHITE BLOOD COUNT 12.5 10^3/uL (4.3-11.0)
[2018-05-08] MEDS ORDERED: ANTACID SUSP 30 ML UDC (MYLANTA) PO ONE (00:30)
[2018-05-08] MEDS ORDERED: LIDOCAINE 2% VISCOUS 15 ML UDC PO ONE (00:30)
[2018-05-08 00:37] LABS: ALANINE AMINOTRANSFERASE 30 U/L (0-55); ALBUMIN 4.9 GM/DL (3.2-4.5); ALKALINE PHOSPHATASE 70 U/L (40-136); BILIRUBIN,TOTAL 1.3 MG/DL (0.1-1.0); BUN/CREATININE RATIO 22; CALCIUM 10.2 MG/DL (8.5-10.1); CARBON DIOXIDE 22 MMOL/L (21-32); CHLORIDE 102 MMOL/L (98-107); CREATININE SERUM 0.82 MG/DL (0.60-1.30); GFR ESTIMATED > 60; GLUCOSE 162 MG/DL (70-105); SODIUM 139 MMOL/L (135-145); TOTAL PROTEIN 8.6 GM/DL (6.4-8.2)
[2018-05-08] MEDS ORDERED: D5 NS 1000 ML IV SOLUTION 1,000 ML IV STA (00:39)
[2018-05-08 00:43] LABS: LYMPHOCYTES % (MANUAL) 4 %; MONOCYTES % (MANUAL) 3 %; NEUTROPHILS % (MANUAL) 93 %; RBC MORPH NORMAL
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
[2018-05-08] MEDS ORDERED: PANTOPRAZOLE 40 MG (PROTONIX) VIAL IV ONE (01:15)
[2018-05-08] MEDS ORDERED: PROMETHAZINE INJ 25 MG/ML (PHENERGAN) AMP IVP STA (01:15)
[2018-05-08] MEDS ORDERED: RX-ONDANSETRON 4 MG ODT (ZOFRAN) PPK #4 PO STA (02:16)
[2018-05-08] MEDS ORDERED: PROM25TA14 PO (02:23)
[2018-05-08 02:37] VITALS: BP 148/95
--- NOTE | 2018-05-08 06:02 | Diagnostic Imaging Report ---
PROCEDURE: CT head without contrast. TECHNIQUE: Multiple contiguous axial images were obtained through the brain without the use of intravenous contrast. INDICATION: Headache, nausea and vomiting COMPARISON: 05/01/2018 FINDINGS: The previously described punctate hyperdensity in the right frontal lobe along the cortex has significantly decreased in size since the prior exam (image 17 series 2). No new acute hemorrhage is seen. There is no midline shift or mass effect. Cortical sulci and ventricles appear normal. There is no CT evidence of acute territorial ischemia. No acute intracranial hemorrhage is seen. Paranasal sinuses appear clear. IMPRESSION: 1. Decreased size of the tiny hyperdensity along the right frontal cortex, may represent resolving parenchymal contusion or petechial hemorrhage. 2. No new hemorrhage or CT evidence of acute territorial ischemia. Dictated by: Dictated on workstation # [id number]
== END 2018-05-08 02:41 | disposition home or self-care (01) ==
LOC: EDUNIT# 22:02 → ER 22:03
DX: F12.188 Cannabis abuse with other cannabis-induced disorder (principal); R11.10 Vomiting, unspecified; R51 Headache; K21.9 Gastro-esophageal reflux disease without esophagitis; F41.9 Anxiety disorder, unspecified; F17.200 Nicotine dependence, unspecified, uncomplicated; Z82.49 Family history of ischemic heart disease and other diseases of the circulatory system
CPT/HCPCS: 36415; 70450; 80053; 81000; 85007; 85027; 96361; 96374; 96375

== ENCOUNTER 2020-11-27 07:06 | Emergency (ER) | payer SELFPAY ==
[~2020-11-27] VITALS: Ht 185 cm; Wt 91.0 kg
[~2020-11-27 07:06] MED LIST changes: -PANT40TA3 PO; +PANT40TA52 PO
[2020-11-27] MEDS ORDERED: ONDANSETRON 4 MG/2 ML (SDV) Z0FRAN IVP ONE (07:30)
[2020-11-27] MEDS ORDERED: LACTATED RINGERS 1,000 ML IV ONE ×2 (07:30→08:30)
[2020-11-27] MEDS ORDERED: FAMOTIDINE 20MG/2ML IV (PEPCID) IVP ONE (07:30)
[2020-11-27 07:45] LABS: BASOPHILS % (AUTO) 0 % (0-10); EOSINOPHILS % (AUTO) 0 % (0-10); HEMATOCRIT 50 % (40-54); HEMOGLOBIN 17.4 g/dL (13.3-17.7); LYMPHOCYTES # (AUTO) 0.4 10^3/uL (1.0-4.0); LYMPHOCYTES % (AUTO) 4 % (12-44); MEAN CORPUSCULAR HEMOGLOBIN 31 pg (25-34); MEAN CORPUSCULAR HGB CONC 35 g/dL (32-36); MEAN CORPUSCULAR VOLUME 88 fL (80-99); MEAN PLATELET VOLUME 10.3 fL (9.0-12.2); MONOCYTES # (AUTO) 0.4 10^3/uL (0.0-1.0); MONOCYTES % (AUTO) 4 % (0-12); NEUTROPHILS # (AUTO) 9.4 10^3/uL (1.8-7.8); NEUTROPHILS % (AUTO) 91 % (42-75); PLATELET COUNT 263 10^3/uL (130-400); WHITE BLOOD COUNT 10.3 10^3/uL (4.3-11.0)
[2020-11-27 07:56] LABS: ALBUMIN 4.8 GM/DL (3.2-4.5)
[2020-11-27 07:57] LABS: CHLORIDE 101 MMOL/L (98-107); POTASSIUM 4.1 MMOL/L (3.6-5.0); SODIUM 139 MMOL/L (135-145)
[2020-11-27 07:58] LABS: CALCIUM 9.4 MG/DL (8.5-10.1)
--- NOTE | 2020-11-27 07:58 | ED GI ---
General Chief Complaint: Abdominal/GI Problems Stated Complaint: N/V DIARRHEA HAD 1ST DOSE Nursing Triage Note: PT STATES HIS AND CHILD HAVE HAD A STOMACH VIRUS OVER THE LAST COUPLE DAYS, CC OF NVD. STATES FEELING SOB DUE TO VOMITING, 100% ON ROOM AIR. STATES HX OF ANXIETY FROM VOMITING, HAS HAD TO COME TO THE ER BEFORE BECAUSE OF BEING ANXIOUS AFTER VOMITING. Sepsis Screen: No Definite Risk Source of Information: Patient Exam Limitations: No Limitations History of Present Illness Date Seen by Provider: Nov 27, 2020 Time Seen by Provider: 07:15 Initial Comments This 30-year-old gentleman presents to the emergency room with nausea, vomiting and diarrhea that started last night around 19:00. This morning he is also complaining of tightness in the chest and shortness of breath. He notes this has been a response to vomiting in the past. His and daughter have had gastrointestinal complaints recently as well. He notes generalized abdominal discomfort that started after the vomiting. He is afebrile and denies cough. He has received 1 dose of the COVID-19 vaccine. Patient admitted to marijuana use a few days ago. He has had problems with vomiting related to marijuana use in the past. Allergies and Home Medications Allergies Coded Allergies: No Known Drug Allergies (Unverified , 10/23/14) Home Medications Ondansetron 4 Mg Tab.rapdis, 4 MG SL Q4H PRN for NAUSEA/VOMITING-1ST LINE Prescribed by: KATHIE HEDRICK on 10/27/17 0649 Ondansetron 4 Mg Tab.rapdis, 4 MG SL Q4H PRN for NAUSEA/VOMITING Prescribed by: KATHIE HEDRICK on 11/27/20 1033 Promethazine HCl 25 Mg Tablet, 25 MG PO Q8H PRN for NAUSEA/VOMITING Prescribed by: TYREE STONER on 05/08/18 0223 Patient Home Medication List Home Medication List Reviewed: Yes Review of Systems Review of Systems Constitutional: no symptoms reported EENTM: No Symptoms Reported Respiratory: See HPI Cardiovascular: No Symptoms Reported Gastrointestinal: See HPI Genitourinary: No Symptoms Reported Musculoskeletal: no symptoms reported Skin: no symptoms reported Psychiatric/Neurological: See HPI Endocrine: No Symptoms Reported Hematologic/Lymphatic: No Symptoms Reported Past Ckzykvc-Dofltp-Swpqwn Hx Past Med/Social Hx: Reviewed Nursing Past Med/Soc Hx Patient Social History Alcohol Use: Occasionally Uses Number of Drinks Today: FF Alcohol Beverage of Choice: Beer, Vodka Drug of Choice: Marijuana Smoking Status: Former Smoker Former Smoker, Quit: Nov 15, 2010 Recent Infectious Disease Expo: No Recent Hopitalizations: No Immunizations Up To Date Tetanus Booster (TDap): More than 5yrs Seasonal Allergies Seasonal Allergies: No Past Medical History Surgeries: Yes (EGD) Respiratory: No Cardiac: No Neurological: No Reproductive Disorders: No Sexually Transmitted Disease: No HIV/AIDS: No Genitourinary: No Gastrointestinal: Yes ("unexplained bouts of vomitting") Gastroesophageal Reflux Musculoskeletal: No Endocrine: No HEENT: No Cancer: No Psychosocial: Yes Anxiety Integumentary: No Blood Disorders: No Family Medical History Cancer 03 FATHER (grandfather) 03 MOTHER (grandaunts) Family history: Breast disease 03 MOTHER Family history: Hypertension 03 FATHER No Family History of: Abdominal aortic aneurysm Alvino's disease Alcoholism Cancer of colon Cataract Chest pain Congenital heart disease Congestive heart failure Cystic fibrosis Dementia Dysphagia Family history: Alzheimer's disease Family history: Arthritis Family history: Asthma Family history: Cardiovascular disease Family history: Coronary thrombosis Family history: Diabetes mellitus Family history: Gastrointestinal disease Family history: Glaucoma Family history: Osteoporosis Family history: Thyroid disorder Headache Hearing loss Heart disease History of - anemia History of - respiratory disease History of drug abuse Human immunodeficiency virus (HIV) seropositivity Hypercholesterolemia Kidney disease Myocardial infarction Parkinson's disease Prostate cancer Psychotic disorder Seizure disorder Stroke Tuberculosis Visual impairment No Pertinent Family Hx Physical Exam Vital Signs Vital Signs - First Documented 11/27/20 07:12 Temp 36.5 Pulse 65 Resp 22 B/P (MAP) 153/81 (105) Pulse Ox 100 O2 Delivery Room Air Capillary Refill : Less Than 3 Seconds Height/Weight/BMI Height: 6'0" Weight: 180lbs. 5.0oz. 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, no motor/sensory deficits, alert, oriented x 3, other (anxious) Skin: normal color, warm/dry Procedures/Interventions Suture Size: 4-0 Progress/Results/Core Measures Results/Orders Lab Results Laboratory Tests Test 11/27/20 07:28 Range/Units White Blood Count 10.3 4.3-11.0 10^3/uL Red Blood Count 5.67 H 4.30-5.52 10^6/uL Hemoglobin 17.4 13.3-17.7 g/dL Hematocrit 50 40-54 % Mean Corpuscular Volume 88 80-99 fL Mean Corpuscular Hemoglobin 31 25-34 pg Mean Corpuscular Hemoglobin Concent 35 32-36 g/dL Red Cell Distribution Width 11.9 10.0-14.5 % Platelet Count 263 130-400 10^3/uL Mean Platelet Volume 10.3 9.0-12.2 fL Immature Granulocyte % (Auto) 0 % Neutrophils (%) (Auto) 91 H 42-75 % Lymphocytes (%) (Auto) 4 L 12-44 % Monocytes (%) (Auto) 4 0-12 % Eosinophils (%) (Auto) 0 0-10 % Basophils (%) (Auto) 0 0-10 % Neutrophils # (Auto) 9.4 H 1.8-7.8 10^3/uL Lymphocytes # (Auto) 0.4 L 1.0-4.0 10^3/uL Monocytes # (Auto) 0.4 0.0-1.0 10^3/uL Eosinophils # (Auto) 0.0 0.0-0.3 10^3/uL Basophils # (Auto) 0.0 0.0-0.1 10^3/uL Immature Granulocyte # (Auto) 0.0 0.0-0.1 10^3/uL Neutrophils % (Manual) 85 % Lymphocytes % (Manual) 6 % Monocytes % (Manual) 2 % Eosinophils % (Manual) 0 % Basophils % (Manual) 1 % Band Neutrophils 6 % Blood Morphology Comment NORMAL Sodium Level 139 135-145 MMOL/L Potassium Level 4.1 3.6-5.0 MMOL/L Chloride Level 101 98-107 MMOL/L Carbon Dioxide Level 22 21-32 MMOL/L Anion Gap 16 H 5-14 MMOL/L Blood Urea Nitrogen 23 H 7-18 MG/DL Creatinine 0.97 0.60-1.30 MG/DL Estimat Glomerular Filtration Rate > 60 BUN/Creatinine Ratio 24 Glucose Level 179 H 70-105 MG/DL Calcium Level 9.4 8.5-10.1 MG/DL Corrected Calcium 8.5-10.1 MG/DL Magnesium Level 1.9 1.6-2.4 MG/DL Total Bilirubin 1.4 H 0.1-1.0 MG/DL Aspartate Amino Transf (AST/SGOT) 25 5-34 U/L Alanine Aminotransferase (ALT/SGPT) 40 0-55 U/L Alkaline Phosphatase 92 40-136 U/L Total Protein 8.3 H 6.4-8.2 GM/DL Albumin 4.8 H 3.2-4.5 GM/DL Coronavirus 2019 (JANNA) Not Detected Not Detecte Micro Results Microbiology 11/27/20 Influenza Types A,B Antigen (BONNIE) - Final, Complete My Orders Orders - KATHIE DICKERSON MD Cbc With Automated Diff (11/27/20 07:17) Comprehensive Metabolic Panel (11/27/20 07:17) Influenza A And B Antigens (11/27/20 07:17) Chest 1 View, Ap/Pa Only (11/27/20 07:17) Covid 19 Inhouse Test (11/27/20 07:17) Magnesium (11/27/20 07:17) Ed Iv/Invasive Line Start (11/27/20 07:17) Ondansetron Injection (Zofran Injectio (11/27/20 07:30) Famotidine Injection (Pepcid Injection) (11/27/20 07:30) Lactated Ringers (Lr 1000 Ml Iv Solution (11/27/20 07:30) Manual Differential (11/27/20 07:28) Promethazine Injection (Phenergan Injec (11/27/20 08:30) Lactated Ringers (Lr 1000 Ml Iv Solution (11/27/20 08:30) Lidocaine 2% Viscous 15 Ml (Xylocaine Vi (11/27/20 09:30) Antacid Suspension (Mylanta Suspension (11/27/20 09:30) Medications Given in ED Current Medications Medications Dose Ordered Sig/Ochoa Route Start Time Stop Time Status Last Admin Dose Admin Al Hydrox/Mg Hydrox/Simethicone 30 ml ONCE ONCE PO 11/27/20 09:30 11/27/20 09:31 DC 11/27/20 09:27 30 ML Famotidine 20 mg ONCE ONCE IVP 11/27/20 07:30 11/27/20 07:31 DC 11/27/20 07:42 20 MG Lactated Ringer's 1,000 ml @ 0 mls/hr Q0M ONCE IV 11/27/20 07:30 11/27/20 07:31 DC 11/27/20 07:42 1,000 MLS/HR Lactated Ringer's 1,000 ml @ 0 mls/hr Q0M ONCE IV 11/27/20 08:30 11/27/20 08:31 DC 11/27/20 08:32 1,000 MLS/HR Lidocaine HCl 15 ml ONCE ONCE PO 11/27/20 09:30 11/27/20 09:31 DC 11/27/20 09:27 15 ML Ondansetron HCl 8 mg ONCE ONCE IVP 11/27/20 07:30 11/27/20 07:31 DC 11/27/20 07:42 8 MG Promethazine HCl 25 mg ONCE ONCE IVP 11/27/20 08:30 11/27/20 08:31 DC 11/27/20 08:32 25 MG Vital Signs/I&O 11/27/20 11/27/20 07:12 10:44 Temp 36.5 36.5 Pulse 65 66 Resp 22 18 B/P (MAP) 153/81 (105) 153/81 (105) Pulse Ox 100 98 O2 Delivery Room Air Room Air Blood Pressure Mean: 105 Progress Progress Note #1: Time: 07:57 Progress Note Patient was seen and examined shortly after arrival. He is being treated with Zofran, Pepcid, and IV fluids. Labs are pending. COVID-19 and influenza screening as well as chest x-ray were added due to his complaint of shortness of breath Progress Note #2: Progress Note Patient was given Phenergan for persistent nausea and vomiting. After his vomiting was controlled, he received a GI cocktail which additionally improved his symptoms. Rapid Covid and flu screens were negative. Chest x-ray was unremarkable. Diagnostic Imaging Diagonstic Imaging: Xray Plain Films/CT/US/NM/MRI: chest Comments Chest x-ray viewed by me and report reviewed. See report below: NAME: LILIYOANDYJULIUS TORRES [facility] REC#: [id number] PT STATUS: REG ER : 1990 PHYSICIAN: KATHIE DICKERSON MD ADMIT DATE: 11/27/20/ER Draft Date of Exam:11/27/20 CHEST 1 VIEW, AP/PA ONLY PATIENT HISTORY: SOA. TECHNIQUE: Single frontal view of the chest. COMPARISON: 05/01/2018 FINDINGS: The lung volumes are mildly large but stable since the prior study. No focal consolidation is seen. No large pleural effusion or pneumothorax is seen. The cardiomediastinal silhouette is normal in size and contour. No acute osseous abnormality is seen. IMPRESSION: No acute pulmonary abnormality seen. Dictated on workstation # [id number] Dict: 11/27/2057 Trans: 11/27/20 0859 [facility] [id number] Interpreted by: NANETTE MCCABE MD Departure Impression Primary Impression: Nausea vomiting and diarrhea Additional Impression: Marijuana use Disposition: 01 HOME, SELF-CARE Condition: Improved Departure-Patient Inst. Decision time for Depature: 10:32 Referrals: ANIBAL SHEPARD DO (PCP/Family) Primary Care Physician Patient Instructions: Diarrhea in Adolescents and Adults, Nausea and Vomiting, Adult (DC) Add. Discharge Instructions: Adhere to a clear liquid diet for the remainder of the day. Drink plenty of clear liquids. Tomorrow gradually advance your diet with a small amount of bland foods as tolerated. Use Zofran (ondansetron) as prescribed for nausea and vomiting. Avoid any consumption of marijuana or THC products as this may worsen nausea and vomiting. Call with questions or concerns. Return to the ER if you have worsening symptoms. All discharge instructions reviewed with patient and/or family. Voiced understanding. Scripts Ondansetron (Ondansetron Odt) 4 Mg Tab.rapdis 4 MG SL Q4H PRN for NAUSEA/VOMITING, #10 TAB Prov: KATHIE DICKERSON MD 11/27/20 KATHIE DICKERSON MD Nov 27, 2020 07:58
[2020-11-27 07:59] LABS: GLUCOSE 179 MG/DL (70-105); TOTAL PROTEIN 8.3 GM/DL (6.4-8.2)
[2020-11-27 08:00] LABS: CARBON DIOXIDE 22 MMOL/L (21-32)
[2020-11-27 08:01] LABS: BILIRUBIN,TOTAL 1.4 MG/DL (0.1-1.0)
[2020-11-27 08:02] LABS: ALKALINE PHOSPHATASE 92 U/L (40-136)
[2020-11-27 08:03] LABS: CREATININE SERUM 0.97 MG/DL (0.60-1.30); GFR ESTIMATED > 60
[2020-11-27 08:04] LABS: BUN/CREATININE RATIO 24
[2020-11-27 08:05] LABS: ALANINE AMINOTRANSFERASE 40 U/L (0-55); MAGNESIUM 1.9 MG/DL (1.6-2.4)
[2020-11-27 08:24] LABS: BAND NEUTROPHILS 6 %; BASOPHILS % (MANUAL) 1 %; EOSINOPHILS % (MANUAL) 0 %; LYMPHOCYTES % (MANUAL) 6 %; MONOCYTES % (MANUAL) 2 %; NEUTROPHILS % (MANUAL) 85 %; RBC MORPH NORMAL
[2020-11-27] MEDS ORDERED: PROMETHAZINE INJ 25 MG/ML (PHENERGAN) AMP IVP ONE (08:30)
--- NOTE | 2020-11-27 08:59 | Diagnostic Imaging Report ---
PATIENT HISTORY: SOA. TECHNIQUE: Single frontal view of the chest. COMPARISON: 05/01/2018 FINDINGS: The lung volumes are mildly large but stable since the prior study. No focal consolidation is seen. No large pleural effusion or pneumothorax is seen. The cardiomediastinal silhouette is normal in size and contour. No acute osseous abnormality is seen. IMPRESSION: No acute pulmonary abnormality seen. Dictated by: Dictated on workstation # [id number]
[2020-11-27] MEDS ORDERED: ANTACID SUSP 30 ML UDC (MYLANTA) PO ONE (09:30)
[2020-11-27] MEDS ORDERED: LIDOCAINE 2% VISCOUS 15 ML UDC PO ONE (09:30)
[2020-11-27] MEDS ORDERED: ONDA4TAB11 SL (10:33)
[2020-11-27 10:44] VITALS: BP 153/81
== END 2020-11-27 10:44 | disposition home or self-care (01) ==
LOC: EDUNIT# 07:06 → ER 07:09
DX: R11.2 Nausea with vomiting, unspecified (principal); R19.7 Diarrhea, unspecified; F12.90 Cannabis use, unspecified, uncomplicated; Z20.822 Contact with and (suspected) exposure to COVID-19; Z87.891 Personal history of nicotine dependence
CPT/HCPCS: 71045; 80053; 83735; 85007; 85027; 87804; 96374; 96375; 99284; U0002; 36415; 87635